=== PATIENT | male | born 1950 | race African-American/Black ===

== ENCOUNTER 2017-01-23 13:06 | Emergency (ER) | payer MEDICARE, OTHER ==
--- NOTE | ~2017-01-23 | EKG ---
PATIENT: GATO DONOHUE UNIT #: [id number] Ventricular Rate: 84 BPM Atrial Rate: 84 BPM P-R Interval: 140 ms QRS Duration: 90 ms Q-T Interval: 406 ms QTC Calculation(Bezet): 479 ms P Elkins: 81 degrees Calculated R Elkins: 65 degrees Calculated T Elkins: 66 degrees Diagnosis Line: Normal sinus rhythm Diagnosis Line: Normal ECG Diagnosis Line: No previous ECGs available Diagnosis Line: Confirmed by CINDY VELÁSQUEZ MD ([id number]) on Diagnosis Line: 01/24/2017 12:08:11 AM INTERPRETING MD: DIDIER MORENO
[2017-01-23 14:01] LABS: BASOPHIL% 0.4 % (0-2.5); EOSINOPHIL% 0.3 % (0.0-7.0); HEMATOCRIT 42.6 % (38.0-50.0); HEMOGLOBIN 14.2 gm/dL (13.0-16.0); LYMPHOCYTE# 0.9 X10e3 (1.0-3.5); LYMPHOCYTE% 11.4 % (17.0-45.0); MEAN CELL VOLUME 92.9 FL (83-96); MEAN CORPUSCULAR HEMOGLOBIN 31.1 PG (28-34); MEAN CORPUSCULAR HGB CONC 33.4 g/dL (30-36); MEAN PLATELET VOLUME 8.2 FL (6.5-11.5); MONOCYTE# 0.4 X10e3 (0-1.0); MONOCYTE% 5.8 % (3.0-12.0); NEUTROPHIL# 6.2 X10e3 (1.5-7.1); NEUTROPHIL% 82.1 % (40-75); PLATELET COUNT 292 X10e3 (140-420); RED BLOOD COUNT 4.59 X10e (3.90-5.60); RED CELL DISTRIBUTION WIDTH 14.5 % (11.0-15.5); WHITE BLOOD COUNT 7.5 X10e3 (4.0-10.5)
[2017-01-23 14:03] LABS: DIFF IND NO
[2017-01-23 14:19] LABS: ALBUMIN SERUM 4.2 g/dL (3.5-5.0); ALKALINE PHOSPHATASE 53 U/L (32-92); ALT (SGPT) 16 U/L (10-40); AMYLASE 23 U/L (0-46); AST (SGOT) 24 U/L (10-42); BILIRUBIN, DIRECT 0.1 mg/dL (0.0-0.2); BILIRUBIN,INDIRECT 0.5 mg/dL (0.0-0.9); BILIRUBIN,TOTAL 0.6 mg/dL (0.2-2.0); BLOOD UREA NITROGEN 14 mg/dL (9-23); BUN/CREATININE RATIO 12.72; CALCIUM SERUM 9.3 mg/dL (8.4-10.2); CARBON DIOXIDE 27 mmol/L (22-31); CHLORIDE 100 mmol/L (100-111); CREATININE SERUM 1.1 mg/dL (0.6-1.4); GLOM FILT RATE Estimated ABOVE60 mL/min (>60); GLUCOSE FASTING 95 mg/dL (70-110); LIPASE 20 U/L (22-51); POTASSIUM 3.9 mmol/L (3.5-5.1); SODIUM 138 mmol/L (135-145)
[2017-01-23 14:20] LABS: ALCOHOL BLOOD <5 mg/dL (0)
== END 2017-01-23 15:33 | disposition home or self-care (01) ==
LOC: CED 13:06
PROVIDERS: Emergency Medicine
DX: E16.2 Hypoglycemia, unspecified (principal); J44.9 Chronic obstructive pulmonary disease, unspecified; G90.50 Complex regional pain syndrome I, unspecified; F17.200 Nicotine dependence, unspecified, uncomplicated
CPT/HCPCS: 36415; 80048; 80076; 82150; 82947; 83605; 83690; 85025; 93005; 96365; 99284; G0480; J3411; J3475

== ENCOUNTER → 2017-02-09 | Outpatient (CLI) | payer MEDICARE, OTHER | END | disposition home or self-care (01) | LOC: CLAB 13:09 | DX: R97.20 Elevated prostate specific antigen [PSA] (principal) | CPT/HCPCS: 36415; G0103 ==

== ENCOUNTER → 2017-06-02 | Outpatient (CLI) | payer MEDICARE, OTHER ==
--- NOTE | ~2017-06-02 | CT138 ---
[facility] A Service [facility] RADIOLOGY TEXT RESULTS PATIENT: GATO DONOHUE III LOCATION: [facility] : 50 UNIT #: [id number] AGE: [address]: Jenise Abreu MD SEX: M ORDER DR: [id number] [facility]. [place], [place] [address] [id number] O MR#: [id number] [facility] #: [id number] NAME: GATO DONOHUE : 1950 SEX: M STUDY DATE/TIME: 06/02/2017 11:00 UNIT: [facility] ROOM: STUDY DESCRIPTION: CT Lung screening initial Attending Physician: Jenise Abreu M.D. Referring Physician: Jenise Abreu M.D. Ordering Physician: Jenise Abreu M.D. Primary Care Physician: Jenise Abreu M.D. MEDICAL IMAGING REPORT This report is preliminary unless electronic signature is present EXAM CT chest without contrast lung cancer screening INDICATION 50 pack-year total smoking history. Current smoker. TECHNIQUE CT of the chest was performed without contrast. Coronal and sagittal reformatted images were obtained. This CT exam was performed with one or more of the following radiation dose reduction techniques: automatic exposure control, adjustment of mA and/or kV according to patient size, and iterative reconstruction. COMPARISON There are no comparison studies available. FINDINGS Emphysema. There is a micronodule in the right middle lobe on image 114. There is a micronodule in the left lower lobe on image 128. There is no suspicious lymphadenopathy. Coronary artery calcifications. No pleural effusion. Limited imaging of the upper abdomen is unremarkable. Bone windows are unremarkable. IMPRESSION There are two tiny micronodules in the lungs as described. ACR Lung-RADS category 2. Followup annual low-dose lung cancer screening chest CT in one year. Dictated by... Cristi Flynn M.D. THIS IS AN ELECTRONICALLY VERIFIED REPORT [facility] A Service [facility] RADIOLOGY TEXT RESULTS PATIENT: GATO DONOHUE III LOCATION: [facility] : 50 UNIT #: [id number] AGE: [address]: Jenise Abreu MD SEX: M ORDER DR: Cristi Flynn M.D. at 06/03/2017 3:51 PM Merari TD: 06/03/2017 09:19 JOB #: [id number] MEDICAL IMAGING REPORT Page 1 of 1 COPY
== END | disposition home or self-care (01) ==
LOC: CCAT 10:41
DX: F17.210 Nicotine dependence, cigarettes, uncomplicated (principal)
CPT/HCPCS: G0297